=== PATIENT | female | born 1995 | race African-American/Black ===

== ENCOUNTER 2020-12-14 12:29 | Emergency (ER) | payer OTHER, SELFPAY ==
[2020-12-14 12:36] VITALS: BP 128/67; PULSE 74; RESP 18; TEMP 36.9; O2SAT 99
--- NOTE | 2020-12-14 13:08 | ED.URI ---
HPI - URI/Sore Throat General Chief Complaint: Upper Respiratory Infection Stated Complaint: migraine runny nose sore throat cough Time Seen by Provider: 12/14/20 12:51 Source: patient and RN notes reviewed Mode of arrival: ambulatory Limitations: no limitations History of Present Illness HPI Narrative: 25-year-old female presents concern for headache, body aches, sore throat, nasal congestion, runny nose. Reports symptoms started 4 days ago. Reports she started coughing yesterday. Reports she had an exposure to strep, does not know any exposure to Covid. She reports she has been taking Advil. She denies shortness of breath, loss of sense of taste or smell. She has not been vaccinated for Covid. MD elicited complaint: sore throat Related Data Allergies Allergy/AdvReac Type Severity Reaction Status Date / Time Penicillins Allergy Unknown Verified 12/14/20 12:45 Review of Systems Review of Systems: CONSTITUTIONAL: Denies malaise, chills, sweats, or fever. EYES: Denies visual changes, redness, or discharge. ENT: Reports rhinorrhea, congestion, sore throat. Denies sinus pain, otalgia CARDIOVASCULAR: Denies chest pain, palpitations, or edema. RESPIRATORY: Reports cough. Denies dyspnea. GASTROINTESTINAL: Denies abdominal pain, nausea, vomiting, diarrhea SKIN: Denies rash or itching. MUSCULOSKELETAL: Reports myalgia. NEUROLOGIC: Reports headache. All systems reviewed & are unremarkable except as noted in HPI and below PMFSH Comments At time of signature, agree with nursing past medical, surgical, social and family history. There is no relevant family history pertinent to the presenting complaint Exam Narrative: GENERAL: Well-appearing, well-nourished, and in no acute distress. HEAD: Normocephalic EYES: PERRLA, conjunctivae clear ENT: Nares clear. Mucous membranes moist. TM pearly sandoval with dull light reflex bilaterally; no tragal tenderness. Oropharynx not erythematous without lesions. Tonsils not enlarged and without exudate, no drooling, no hoarseness, no trismus, uvula midline. NECK: Supple. No lymphadenopathy CHEST: Clear to auscultation, breath sounds equal. No wheezing, rhonchi, rales, or stridor. No respiratory distress, speaks in full sentences. HEART: Regular rate and rhythm. No murmur heard. SKIN: Warm, dry, no rash. NEURO: Alert and oriented x3. PSYCH: Normal mood and affect Course Course Emergency Course: Patient is aware of diagnosis, understands and agrees to treatment plan. Anticipatory guidance given. Patient agrees to follow-up as directed and is aware of reasons to seek care at the emergency department. Portions of this record may have been created with voice recognition software Vital Signs Vital signs: Vital Signs Temperature 98.5 F 12/14/20 12:36 Pulse Rate 74 12/14/20 12:36 Respiratory Rate 18 12/14/20 12:36 Blood Pressure 128/67 12/14/20 12:36 Pulse Oximetry 99 12/14/20 12:36 Temperature 98.5 F 12/14/20 12:36 Pulse Rate 74 12/14/20 12:36 Respiratory Rate 18 12/14/20 12:36 Blood Pressure 128/67 12/14/20 12:36 Pulse Oximetry 99 12/14/20 12:36 Reviewed. MDM - URI/Sore Throat MDM Narrative Medical decision making narrative: Differential diagnosis considered: Garner virus, strep pharyngitis, allergic rhinitis, upper respiratory tract infection, sinusitis, rhinosinusitis, nasopharyngitis. viral pharyngitis, otitis media, otitis externa, pneumonia, bronchitis, viral cough syndrome, viral syndrome, and influenza. Exam findings show no acute concerns or changes; patient is non-toxic appearing and is in no distress. Patient is appropriate for outpatient treatment and follow-up. Lab Data Attestation: I reviewed the patient's lab results. Labs: Strep Screen Presumptive Negative *(Reference Range: Negative)* Critical Care Time Critical Care Time Critical Care Time: No Discharge Plan Discharge Clinical Impr
== END 2020-12-14 13:15 | disposition home or self-care (01) ==
PROVIDERS: Emergency Provider Nurse Practitioner
DX: U07.1 COVID-19 (principal)
CPT/HCPCS: 87081; 87426; 87880; 99213; C9803; G0463

== ENCOUNTER 2023-02-25 09:31 | Emergency (ER) | payer BC, SELFPAY ==
[2023-02-25 09:38] VITALS: BP 120/65; PULSE 72; RESP 16; TEMP 36.6; O2SAT 100
--- NOTE | 2023-02-25 10:13 | ED.GENADULT ---
HPI - General Adult General Chief complaint: Nausea/Vomiting/Diarrhea Stated complaint: Vomiting/Tightness of Chest Time Seen by Provider: 02/25/23 09:59 Source: patient and RN notes reviewed Mode of arrival: ambulatory Limitations: no limitations History of Present Illness HPI narrative: Patient presents today complaining of a 5 day history of nausea and vomiting, with left flank pain. States she vomits at least 2 times per day over the past 5 days. She currently rates her abdominal pain 12/04. Patient did a home test last night that was negative. Last bowel movement was this morning. She received a Zofran from a family member, which did help with her nausea symptoms this morning. She also took an Excedrin yesterday for a headache, which did help. Related Data Home Medications Medication Instructions Recorded Confirmed citalopram 20 mg tablet 20 mg PO DAILY 02/25/23 02/25/23 fluoxetine 20 mg capsule (Prozac) 20 mg PO DAILY 02/25/23 02/25/23 trazodone 50 mg tablet 50 mg PO QHS 02/25/23 02/25/23 Allergies Allergy/AdvReac Type Severity Reaction Status Date / Time amoxicillin Allergy Mild Rash Verified 02/25/23 10:11 Penicillins Allergy Mild Rash Verified 02/25/23 10:11 Review of Systems Review of Systems: CONSTITUTIONAL: Denies body aches, fever, chills.+ sweats EYES: Denies visual changes, redness, or discharge. ENT: Denies rhinorrhea, congestion, sore throat, or otalgia. CARDIOVASCULAR: Denies chest pain, palpitations, or edema. RESPIRATORY: Denies cough or dyspnea. GASTROINTESTINAL: + abdominal pain, left flank pain, nausea, vomiting GENITOURINARY: Denies dysuria or hematuria. SKIN: Denies rash, itching, or wounds. MUSCULOSKELETAL: Denies back pain, joint pain, or myalgia. NEUROLOGIC: Denies numbness, tingling, or weakness.+ headache PSYCH: Denies depression or anxiety. PMFSH Comments At time of signature, I have reviewed and agree with nursing past medical, surgical, social and family history unless otherwise noted. Please see nursing chart for further information. There is no relevant family history pertinent to the presenting complaint Exam Narrative: GENERAL: Well-appearing, well-nourished, and in no acute distress. HEAD: Normocephalic, atraumatic. EYES: EOMI. No redness or drainage. Conjunctivae normal. ENT: Mucous membranes pink and moist. NECK: Normal AROM. Supple. No lymphadenopathy. CHEST: No respiratory distress. Clear to auscultation. HEART: Regular rate and rhythm. No murmur appreciated. Normal peripheral pulses. ABDOMEN: Soft, nondistended, normal active bowel sounds.+ tenderness over the left abdomen and suprapubic area with guarding. -CVAT EXTREMITIES: Normal range of motion. No edema. SKIN: Warm, dry, no rash. Capillary refill normal. Normal skin turgor. NEURO: No focal deficits. Alert and oriented x3. Gait steady. PSYCH: Normal affect. No signs of depression or anxiety. Course Course Level of Care: Express Care Visit Vital Signs Vital signs: Vital Signs Temperature 97.9 F 02/25/23 09:38 Pulse Rate 72 02/25/23 09:38 Respiratory Rate 16 02/25/23 09:38 Blood Pressure 120/65 02/25/23 09:38 Pulse Oximetry 100 02/25/23 09:38 Oxygen Delivery Room Air 02/25/23 09:38 Temperature 97.9 F 02/25/23 09:38 Pulse Rate 72 02/25/23 09:38 Respiratory Rate 16 02/25/23 09:38 Blood Pressure 120/65 02/25/23 09:38 Pulse Oximetry 100 02/25/23 09:38 Oxygen Delivery Room Air 02/25/23 09:38 Reviewed Transfer Transfered to: [facility] Transportation: Other (private vehicle) Transfer rationale: abdominal pain, flank pain Accepting physician: Dorie Medical Decision Making [facility] Narrative Medical decision making narrative: Due to patient's exam and tenderness to her abdomen, I recommend that she be transferred to the hospital for further evaluation. Patient wishes to go to [facility]. Differential Diag
== END 2023-02-25 10:25 | disposition short-term general hospital (02) ==
PROVIDERS: Emergency Provider Nurse Practitioner; PCP Internal Medicine
DX: R10.9 Unspecified abdominal pain (principal); R11.2 Nausea with vomiting, unspecified; F39 Unspecified mood [affective] disorder
CPT/HCPCS: 99212; G0463

== ENCOUNTER 2023-07-16 13:01 | Emergency (ER) | payer BC, SELFPAY ==
[2023-07-16 13:08] VITALS: BP 125/74; PULSE 89; RESP 16; TEMP 36.8; O2SAT 100
--- NOTE | 2023-07-16 13:26 | ED.GENADULT ---
HPI - General Adult General Chief complaint: Dental/Oral Stated complaint: Toothache Source: patient, RN notes reviewed and old records reviewed Mode of arrival: ambulatory Limitations: no limitations History of Present Illness HPI narrative: 27-year-old female presents to [facility] with complaints of left upper dental pain that started in March. Patient states had a dentist appointment but they canceled on her twice. Patient states was on cephalexin in April for infected tooth. Related Data Home Medications Medication Instructions Recorded Confirmed citalopram 20 mg tablet 20 mg PO DAILY 02/25/23 07/16/23 fluoxetine 20 mg capsule (Prozac) 20 mg PO DAILY 02/25/23 07/16/23 trazodone 50 mg tablet 50 mg PO QHS 02/25/23 07/16/23 Allergies Allergy/AdvReac Type Severity Reaction Status Date / Time amoxicillin Allergy Mild Rash Verified 07/16/23 13:22 Penicillins Allergy Mild Rash Verified 07/16/23 13:22 Review of Systems Constitutional: Constitutional: Reports no additional constitutional complaints, Denies body ache(s), Denies chills, Denies fatigue, Denies fever(s) and Denies headache(s) Eyes: Eyes: Reports no additional eye complaints and Denies blurry vision ENT: Reports system reviewed and no additional complaints, except as documented, Reports dental pain, Denies vertigo, Denies dizziness, Denies ear discharge, Denies otalgia, Denies facial pain, Denies headache(s), Denies nasal congestion, Denies nasal discharge, Denies sinus pain, Denies sinus pressure and Denies sore throat Cardiovascular: Cardiovascular: Reports no additional cardiovascular complaints, Denies chest pain, Denies chest pain at rest, Denies rapid heart rate and Denies dyspnea Respiratory: Respiratory: Reports no additional respiratory complaints, Denies chest congestion, Denies cough, Denies pain on inspiration, Denies pain with cough and Denies dyspnea Gastrointestinal: Gastrointestinal: Denies abdominal pain, Denies diarrhea, Denies nausea and Denies vomiting Integumentary/Breasts: Skin/Breast: Denies rash Neurologic: Reports system reviewed and no additional complaints, except as documented, Denies vertigo, Denies dizziness and Denies headache(s) Endocrine: Endocrine: Denies fatigue PMFSH Comments At the time of my signature, I reviewed and agree with the nursing past medical, surgical, social, and family history. There is no relevant family history pertinent to the patient complaint. Exam Const: General: cooperative, healthy appearing, no acute distress and well nourished Nutritional Appearance: well nourished Orientation/consciousness: patient oriented x3 Limitations: no limitations HENMT: Head: normal to inspection and normocephalic Ears: external ears normal Face/Nose/Sinus: normal facial exam Face and sinus: normal facial exam Mouth: Yes Normal oral and palatal mucosa present, Yes oropharynx normal and Yes moist mucous membranes Teeth and gingiva: gingiva abnormal edematous and diffusely erythematous and poor dentition Teeth image: 1. Throat: tonsils normal, uvula midline and no uvular edema Eyes: General: appearance normal, both eyes and all related structures Sclera: sclerae normal Pupils: Equal, round and reactive pupils present Resp: Effort & Inspection: normal respiratory effort, able to speak in complete sentences, no audible wheezes, no cough, no respiratory distress and no retractions Auscultation: clear to auscultation bilaterally, no crackles, no rales, no rhonchi and no wheezes Cardio: Rate: regular rate Rhythm: regular rhythm Skin: General skin exam: normal color and no rashes or lesions noted Neuro: General: patient oriented x3 Cranial nerves: Yes Equal, round and reactive pupils present Psych: Appearance: grossly normal Mental Status: mental status grossly normal Speech and movement: Normal speech and movement present Affect: normal affect Course Course Emergency Course: Patient is aware
== END 2023-07-16 13:35 | disposition home or self-care (01) ==
PROVIDERS: Emergency Provider Registered Nurse; PCP Internal Medicine
DX: K04.7 Periapical abscess without sinus (principal)
CPT/HCPCS: 99213; G0463

== ENCOUNTER 2024-01-04 13:04 | Emergency (ER) | payer SELFPAY ==
--- NOTE | ~2024-01-04 | XR_ITS ---
EXAMINATION: XR ankle LT min 3V DATE: 01/04/2024 13:38 INDICATION: Left ankle injury. TECHNIQUE: 4 views of left ankle were obtained. COMPARISON: None. FINDINGS: Bone alignment is normal. No fracture. Joint spaces are normal. There is an enthesophyte of posterior aspect of calcaneal tuberosity. IMPRESSION: 1. No fracture. Reviewed, dictated and finalized at location A. IMPRESSION: 1. No fracture.
--- NOTE | ~2024-01-04 | XR_ITS ---
EXAMINATION: XR tibia fibula LT 2V DATE: 01/04/2024 13:38 INDICATION: Left lower leg injury. TECHNIQUE: 2 views of left tibia and fibula on 4 radiographs were obtained. COMPARISON: None. FINDINGS: Bone alignment is normal. No fracture. Joint spaces are normal. No knee joint effusion. IMPRESSION: 1. No fracture. Reviewed, dictated and finalized at location A. IMPRESSION: 1. No fracture.
[2024-01-04 13:10] VITALS: BP 133/48; PULSE 81; RESP 20; TEMP 37; O2SAT 100
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
== END 2024-01-04 14:00 | disposition home or self-care (01) ==
PROVIDERS: Emergency Provider Nurse Practitioner Family; PCP Internal Medicine
DX: S80.12XA Contusion of left lower leg, initial encounter (principal); V86.09XA Driver of other special all-terrain or other off-road motor vehicle injured in traffic accident, initial encounter; F41.9 Anxiety disorder, unspecified; F32.A Depression, unspecified
CPT/HCPCS: 73590; 73610; 99214; G0463

== ENCOUNTER 2024-07-05 12:45 | Emergency (ER) | payer SELFPAY ==
[2024-07-05 12:53] VITALS: BP 132/73; PULSE 97; RESP 20; TEMP 36.6; O2SAT 99
--- NOTE | 2024-07-05 13:16 | ED.GENADULT ---
HPI - General Adult General Chief complaint: Nausea/Vomiting/Diarrhea Stated complaint: Vomiting Time Seen by Provider: 07/05/24 13:12 Source: patient, RN notes reviewed and old records reviewed Mode of arrival: ambulatory Limitations: no limitations History of Present Illness HPI narrative: 28-year-old female who presents to [facility] with 5 day history of nausea and vomiting and also some diarrhea. She states last episode vomiting and diarrhea was 11 30 this morning. Patient states she tried to eat some chicken broth and crackers and had emesis and diarrhea. Patient reports that she had fever up to 102.3 F last night and also has bad headache today. Patient reports that she has been exposed to influenza but was about 2 to 3 weeks ago. Patient reports pain to abdomen area right lateral abdomen radiating to lower abdomen region states has had UTI's before but is unable to give urine specimen. Patient reports that she has taken Ibuprofenand also Pepto Bismol for her symptoms. MD complaint: nausea and vomiting and diarrhea Onset (ago): day(s) (5) Location: abdomen (right lateral mid abdomen radiating to lower abdomen) Severity: moderate Quality: aching Pain Consistency: intermittent Treatments prior to arrival: NSAID and other (Pepto Bismol) Related Data Home Medications ?Medication ?Instructions ?Recorded ?Confirmed ?Last Taken ?Type citalopram 20 mg tablet 20 mg PO DAILY 02/25/23 01/04/24 Unknown History fluoxetine 20 mg capsule (Prozac) 20 mg PO DAILY 02/25/23 01/04/24 Unknown History trazodone 50 mg tablet 50 mg PO QHS 02/25/23 01/04/24 Unknown History Allergies Allergy/AdvReac Type Severity Reaction Status Date / Time amoxicillin Allergy Mild Rash Verified 01/04/24 13:24 Penicillins Allergy Mild Rash Verified 01/04/24 13:24 Review of Systems Review of Systems: CONSTITUTIONAL: Reports malaise, chills, sweats, or fever. EYES: Denies visual changes, redness, or discharge. ENT: Reports no rhinorrhea, congestion, sinus pain, otalgia and sore throat. CARDIOVASCUL AR: Denies chest pain, palpitations, or edema. RESPIRATORY: Reports cough.? Denies dyspnea. GASTROINTESTINAL:Reports right lateral mid abdominal pain that radiates to mid lower abdomen,positive for nausea, vomiting, diarrhea SKIN: Denies rash or itching. MUSCULOSKELETAL: Denies myalgia. NEUROLOGIC:reports headache. All systems reviewed & are unremarkable except as noted in HPI and below PMFSH Past Medical History Medical History (Updated 07/07/24 @ 09:01 by Nidia Gonzalez NP) UTI (urinary tract infection) Insomnia Anxiety and depression Social History Social History Smoking status: Unknown if ever smoked Alcohol intake: unknown Substance use: unknown Living arrangements: with family Gender identity (if verbalized by the patient): Female Comments At time of signature, agree with nursing past medical, surgical, social and family history. There is no relevant family history pertinent to the presenting complaint Exam Narrative: GENERAL: Well-appearing, well-nourished, and in no acute distress. HEAD: Normocephalic EYES: PERRLA, conjunctivae clear ENT: Nares clear, turbinates edematous and erythematous, clear discharge. Mucous membranes moist. TM pearly sandoval with dull light reflex bilaterally; no tragal tenderness. Oropharynx erythematous without lesions. Tonsils not enlarged and without exudate, no drooling, no hoarseness, no trismus, uvula midline. NECK: Supple. No lymphadenopathy CHEST: Clear to auscultation, breath sounds equal. No wheezing, rhonchi, rales, or stridor. No respiratory distress, speaks in full sentences.no cough, SAO2 99% on room air ABDOMINAL: soft tender to right lateral mid abdomen with some radiation to lower mid abdomen. No McBurney point tenderness. bowel sounds present to all quadrants HEART: Regular rate and rhythm. No murmur heard. SKIN: Warm, dry, no rash. NEURO: Alert and oriented x3. PSYCH: Normal mood and affect Course Course Emergency Course: Patient is aware of diagnosis, understands and agrees to treatment plan.? Anticipatory guidance given.? Patient agrees to follow-up as directed and is aware of reasons to seek care at the emergency department. Portions of this record may have been created with voice recognition software Level of Care: Express Care Visit Vital Signs Vital signs: Vital Signs Temperature 36.6 C 07/05/24 12:53 Pulse Rate 97 07/05/24 12:53 Respiratory Rate 20 07/05/24 12:53 Blood Pressure 132/73 07/05/24 12:53 Pulse Oximetry 99 07/05/24 12:53 Oxygen Delivery Room Air 07/05/24 12:53 Temperature 36.6 C 07/05/24 12:53 Pulse Rate 97 07/05/24 12:53 Respiratory Rate 20 07/05/24 12:53 Blood Pressure 132/73 07/05/24 12:53 Pulse Oximetry 99 07/05/24 12:53 Oxygen Delivery Room Air 07/05/24 12:53 Reviewed Transfer Transfered to: [facility] ([place]) Transportation: Other (private car with family) Transfer rationale: Nausea and vomiting and diarrhea for 5 days,abdominal pain and was febrile last night, dehydrated Accepting physician: Rainer Transfer comments: To [facility] per private car with family Medical Decision Making MDM Narrative Medical decision making narrative: Patient received Zofran while in clinic with some decrease in nausea and was able to drink 4 oz of water was unable to give urine sample. [id number] Call placed to [facility] ED and spoke with Shanta charge nurse with testing results.PMH, present complaints and vital signs reviewed with Dr Spear accepting patient for transfer. Differential Diagnosis Differential Diagnosis: abdominal pain, pyelonephritis, UTI, ovarian torsion, small bowel obstruction, dehydration nausea vomiting and diarrhea. Medical Records Medical records reviewed: Yes I reviewed the external patient's medical records. Vital Signs Vital Signs: Vital Signs Temperature 36.6 C 07/05/24 12:53 Pulse Rate 97 07/05/24 12:53 Respiratory Rate 20 07/05/24 12:53 Blood Pressure 132/73 07/05/24 12:53 Pulse Oximetry 99 07/05/24 12:53 Oxygen Delivery Room Air 07/05/24 12:53 Temperature 36.6 C 07/05/24 12:53 Pulse Rate 97 07/05/24 12:53 Respiratory Rate 20 07/05/24 12:53 Blood Pressure 132/73 07/05/24 12:53 Pulse Oximetry 99 07/05/24 12:53 Oxygen Delivery Room Air 07/05/24 12:53 Lab Data Lab results reviewed: Yes I reviewed the patient's lab results. Lab results narrative: Influenza A negative, Influenza B negative, COVID antigen negative Labs: Lab Results 07/05/24 Range/Units 13:41 POC Influenza A Ag Negative (Negative) POC Influenza B Ag Negative (Negative) POC SARS CoV-2 Ag Negative (Negative) reviewed Critical Care Time Critical Care Time Critical Care Time: No Discharge Plan Discharge Clinical Impression: Nausea vomiting and diarrhea Abdominal pain Qualifiers: Abdominal location: unspecified location Qualified Code(s): R10.9 - Unspecified abdominal pain Patient Disposition: Acute Care Hospital Condition: Stable Patient Language: Spanish Prescriptions: No Action trazodone 50 mg tablet 50 mg PO QHS citalopram 20 mg tablet 20 mg PO DAILY fluoxetine [Prozac] 20 mg Capsule 20 mg PO DAILY ibuprofen 800 mg tablet 800 mg PO TID PRN (Reason: pain) Qty: 15 0RF Follow-up/Referrals: PHYSICIAN,FREIGHT TEAM ASSOCIATE [Primary Care Provider] - Time of Disposition: 14:11 Quality Adela Coma Scale Eyes: Open Verbal: Oriented and Alert Motor: Follows Commands [place] Coma Total Score: 15
[2024-07-05 13:44] LABS: EDCOVIDSCREEN Negative (Negative); EDINFLUASCREEN Negative (Negative); EDINFLUBSCREEN Negative (Negative)
[2024-07-05] MEDS: ONDANSETRON HCL ODT 4 MG TABLET SUBLINGUAL (13:49)
--- OUTSIDE RECORDS SUMMARY | 2024-07-05 13:58 | XMS_ITS | Clinical Summary ---
Author Organization [facility] Address [address] [place] [address] Care Team Providers Care Shore Hand Dredge Or Barge Name Role Phone Abdelrahman Pickard MD Primary Care Provider [phone] Allergies Active Allergy Reactions Criticality Noted Date Comments Amoxicillin Rash Medium 02/25/2023 Peanut Penicillins Rash Medium 02/25/2023 Medications ondansetron (ZOFRAN) 4 mg tablet Take 1 tablet (4 mg total) by mouth every 6 (six) hours 12 tablet 09/30/2021 Active Social History Tobacco Use Types Packs/Day Years Used Date Smoking Tobacco: Former Cigarettes Smokeless Tobacco: Never Tobacco Cessation:Counseling Given: Not Answered Alcohol Use Standard Drinks/Week Comments Not Currently 0 (1 standard drink = 0.6 oz pur e alcohol) Personal Safety Answer Date Recorded Have you ever been in or are you currently in a harmful physical or emotional relationship or is someone making you feel afraid or unsafe? 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 Gender Identity Not on file Sexual Orientation Not on file Obstetrics History Last Filed Vital Signs Vital Sign Reading Time Taken Comments Blood Pressure 130/82 02/25/2023 11:35 AM CDT Pulse 81 02/25/2023 11:35 AM CDT Temperature 36.5 C (97.7 F) 02/25/2023 11:35 AM CDT Respiratory Rate 18 02/25/2023 11:35 AM CDT Oxygen Saturation 100% 02/25/2023 11:35 AM CDT Inhaled Oxygen Concentration - - Weight 92.5 kg (204 lb) 02/25/2023 11:35 AM CDT Height 157.5 cm (5' 2.01 ) 09/30/2021 9:39 AM CD T Body Mass Index 37.3 09/30/2021 9:39 AM CDT Plan of Treatment Health Maintenance Due Date Last Done Comments Cervical Cancer Screening 1994 Depression Screening 1994 Hepatitis C Screening 1994 Varicella Vaccines (1 of 2 - 13+ 2-dose series) 08/10/2007 Regular Well Visit/Exam 18-64 2012 DTaP/Tdap/Td Vaccine (7 - Td or Tdap) 07/17/2016 07/17/2006, 07/31/1999, 08/10/1995, Additional history exists Influenza Vaccine (#1) 2023 , 02/16/2017, 02/06/2010, Additional history exists Hepatitis B Screening Completed 02/17/1995 , 1994, 1994 HPV Vaccines Completed 01/04/2009, 05/29, 11/01/2007 Pneumococcal vaccine <65 Aged Out No longer eligible based on patient's age to complete this topic Insurance ANTHEM ACCESS CHOICE Care Teams Shore Hand Dredge Or Barge Relationship Specialty Start Date End Date Abdelrahman Pickard MD [address] [place] [id number] PCP - General 04/15/20
--- OUTSIDE RECORDS SUMMARY | 2024-07-05 13:58 | XMS_ITS | Clinical Summary ---
Author Organization [facility] Address [address] [place] [address] Phone Care Team Providers Care Lumber Racker Name Role Phone Abdelrahman Pickard MD Primary Care Provider [phone] Allergies Active Allergy Reactions Criticality Noted Date Comments Amoxicillin Swelling High 01/17/2023 Penicillins Swelling 01/17/2023 Medications ondansetron (ZOFRAN) 4 MG Tablet Take 1-2 Tablets by mouth every 8 hours as needed for Nausea - 1st line. 10 Tablet 03/06/2023 Active Social History Tobacco Use Types Packs/Day Years Used Date Smoking Tobacco: Former Cigarettes Tobacco Cessation:Counseling Given: Not Answered Alcohol Use Standard Drinks/Week Comments Yes 0 (1 standard drink = 0.6 oz pur e alcohol) socially Comments No Sex and Gender Information Value Date Recorded Sex Assigned at Not on file Legal Sex Female 12:32 AM CDT Gender Identity Not on file Sexual Orientation Not on file Last Filed Vital Signs Vital Sign Reading Time Taken Comments Blood Pressure 107/59 03/06/2023 2:42 PM RETOUCHING OPERATOR Pulse 57 03/06/2023 2:42 PM RETOUCHING OPERATOR Temperature 36.8 C (98.2 F) 03/06/2023 11:17 AM RETOUCHING OPERATOR Respiratory Rate 16 03/06/2023 2:42 PM RETOUCHING OPERATOR Oxygen Saturation 99% 03/06/2023 2:42 PM RETOUCHING OPERATOR Inhaled Oxygen Concentration - - Weight 112 kg (246 lb 14.6 oz) 03/06/2023 11:17 AM RETOUCHING OPERATOR Height 160 cm (5' 3 ) 03/06/2023 11:17 AM RETOUCHING OPERATOR Body Mass Index 43.74 03/06/2023 11:17 AM RETOUCHING OPERATOR Plan of Treatment Health Maintenance Due Date Last Done Comments Hepatitis C Virus (HCV) Screening 1994 Pap Smear 08/10/2015 Influenza Immunization (#1) 2023 02/0 10/2022, 02/16/2017, 08/16/2009 SARS-COV-2 Immunization ( - 2023- season) 2023 Respiratory Syncytial Virus (RSV) Immunization (Adult) (1 - 1-dose 75+ series) 2069 Hepatitis B Immunization Completed 995, 1994, 1994 Meningococcal Immunization (ACWY) Completed 10/02/2010, 06/22/2008 DTaP/Tdap/Td Immunization Discontinued 2022, 07/17/2006, 07/31/1999, Additional history exists TdaP Immunization Completed 02/27/2023, , 02/17/1995, Additional history exists Pneumococcal Immunization Combined Aged Out No longer eligible based on patient's age to complete this topic Rotavirus Immunization Aged Out No lo nger eligible based on patient's age to complete this topic Insurance [facility] Care Teams Lumber Racker Relationship Specialty Start Date End Date Abdelrahman Pickard MD [address] [place] [address] PCP - General Internal Medicine 07/17/15
--- OUTSIDE RECORDS SUMMARY | 2024-07-05 13:58 | XMS_ITS | Clinical Summary ---
Author Organization [facility] Address [address] [place] [address] Care Team Providers Care Plate Take Out Worker Name Role Phone Tobi Hay MD Primary Care Provider [phone] Source Comments [facility],non-[facility] Affiliates and Associated Physician Practices is amultiple site organization consisting of ambulatory clinics and hospital sitesin [place], [place], [place] and [place]. This disclosure is being madepursuant to the Care Everywhere program and may not contain all information available regarding this patient. Last updated 18.[facility] Allergies Active Allergy Reactions Criticality Noted Date Comments Peanut-Derived 09/10/2012 Medications * Be aware that medications may not be up to date on this document. Alwaysverify current medications with the patient. Medication Sig Dispensed Refills Start Date End Date Status Norethin-Eth Estrad-Fe Biphas (LO LOESTRIN FE PO) Take by mouth once daily. Active NAPROXEN PO Take by mouth as needed. Active omeprazole EC (PRILOSEC OTC) 20 MG tablet Take 1 Tab by mouth 2 times daily before meals. 60 Tab 2 09/10/2012 Active Social History Tobacco Use Types Packs/Day Years Used Date Smoking Tobacco: Never Alcohol Use Standard Drinks/Week Comments Not Asked 0 (1 standard drink = 0.6 oz pur e alcohol) Sex and Gender Information Value Date Recorded Sex Assigned at Not on file Gender Identity Not on file Sexual Orientation Not on file Last Filed Vital Signs Vital Sign Reading Time Taken Comments Blood Pressure 136/70 09/10/2012 10:59 AM CDT Pulse - - Temperature - - Respiratory Rate - - Oxygen Saturation - - Inhaled Oxygen Concentration - - Weight 128.7 kg (283 lb 11.2 oz) 2012 10:59 AM CDT Height 161 cm (5' 3.39 ) 09/10/2012 10: 59 AM CDT Body Mass Index 49.64 09/10/2012 10:59 AM CDT Plan of Treatment Health Maintenance Due Date Last Done Comments PAP SMEAR 1994 HIV SCREENING 2009 HEPATITIS C SCREENING 08/04/2012 DTAP/TDAP/TD VACCINES (1 - Tdap) 2013 HEPATITIS B VACCINE (1 of 3 - 19+ 3-dose series) 2013 COVID-19 VACCINE (1 - 2023-2 5 season) 2023 INFLUENZA VACCINE (#1) 2023 DEPRESSION SCREENING 04/27/2024 ZOSTER VACCINE (1 of 2) 2044 HIB VACCINE Aged Out No longer eligi ble based on patient's age to complete this topic HPV VACCINE Aged Out No longer eligi ble based on patient's age to complete this topic MENINGOCOCCAL (Group B) VACCINE Aged Out No longer eligible based on patient's age to complete this topic MENINGOCOCCAL VACCINE Aged Out No samuel kelsey eligible based on patient's age to complete this topic PNEUMOCOCCAL VACCINE Aged Out No long er eligible based on patient's age to complete this topic Care Teams Plate Take Out Worker Relationship Specialty Start Date End Date Tobi Hay MD [address] [place] [address] PCP - General 01/02/12
--- OUTSIDE RECORDS SUMMARY | 2024-07-05 13:58 | XMS_ITS | Referral Summary ---
Author Organization [facility] Address [address] [place] [address] Care Team Providers Care Software Business Analyst Name Role Phone Tobi Hay MD Primary Care Provider [phone] Source Comments [facility] Affiliates and Associated Physician Practices is amultiple site organization consisting of ambulatory clinics and hospital sitesin [place], [place], [place] and [place]. This disclosure is being madepursuant to the Care Everywhere program and may not contain all information available regarding this patient. Last updated 18.[facility] Allergies Active Allergy Reactions Criticality Noted Date [...] 09/10/2012 10:59 AM CDT Plan of Treatment Not on file Care Teams Software Business Analyst Relationship Specialty Start Date End Date Tobi Hay MD [address] [place] [address] PCP - General 01/02/12
--- OUTSIDE RECORDS SUMMARY | 2024-07-05 13:58 | XMS_ITS | Referral Summary ---
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
--- OUTSIDE RECORDS SUMMARY | 2024-07-05 13:58 | XMS_ITS | Patient Health Summary ---
Author Organization [facility] Address [address] [place] [address] Care Team Providers Care Log Snaker Name Role Phone Tobi Hay MD Primary Care Provider [phone] Note from [facility],non-owned Affiliates and Associated Physician Practices is amultiple site organization consisting of ambulatory clinics and hospital sitesin [place], [place], [place] and [place]. This disclosure is being madepursuant to the Care Everywhere program and may not contain all information available regarding this patient. Last updated 18.[facility] Allergies * Peanut-Derived Medications * Be aware that medications may not be up to date on this document. Alwaysverify current medications with the patient. * Norethin-Eth Estrad-Fe Biphas (LO LOESTRIN FE PO) Take by mouth once daily. * NAPROXEN PO Take by mouth as needed. * omeprazole EC (PRILOSEC OTC) 20 MG tablet(Started 09/10/2012) Take 1 Tab by mouth 2 times daily before meals. 2 refills left Social History Tobacco Use Types Packs/Day Years [...] Mass Index 49.64 09/10/2012 10:59 AM CDT Procedures * LIPASE BLOOD(Performed 02/12/2012) Performed for Abdominal pain, unspecified site * C-REACTIVE PROTEIN(Performed 02/12/2012) Performed for Abdominal pain, unspecified site * COMPREHENSIVE METABOLIC PANEL(Performed 02/12/2012) Performed for Abdominal pain, unspecified site * CBC W AUTO DIFFERENTIAL(Performed 02/12/2012) Performed for Abdominal pain, unspecified site * AMYLASE BLOOD(Performed 02/12/2012) Performed for Abdominal pain, unspecified site Results * (ABNORMAL) C-REACTIVE PROTEIN (02/12/2012 2:45 PM CDT) [facility] C-Reactive Protein 2.4(H) <=0.5 mg/dL 02/12/2012 3:39 PM CDT [facility] Blood specimen (specimen) BLOOD SPECIMEN / Unknown 02/12/2012 2:45 PM CDT 02/12/2012 2:49 PM CDT Alexandre Lott MD LAB - CHEMISTRY HOMERO FOSTER [facility] Organization Address City/State/[facility] Co de Phone Number [facility] [address] [place] [address] * (ABNORMAL) CBC W AUTO DIFFERENTIAL (02/12/2012 2:45 PM CDT) [facility] WBC 10.9 4.5 - 11.0 x10^9/L 02/12/2012 3:05 PM CDT [facility] RBC 4.73 4.10 - 5.10 x10^12/L 02/12/2012 3:05 PM CDT [facility] Hemoglobin 11.4(L) 12.0 - 16.0 g/dL 02/12/2012 3:05 PM CDT [facility] Hematocrit 35.8(L) 36.0 - 47.0 % 02/12/2012 3:05 PM CDT [facility] MCV 75.7(L) 78.0 - 98.0 fl 02/12/2012 3:05 PM CDT [facility] MCH 24.1(L) 25.0 - 35.0 pg 02/12/2012 3:05 PM CDT [facility] MCHC 31.8 31.0 - 37.0 gm/dL 02/12/2012 3:05 PM CDT [facility] RDW-CV 14.6(H) 11.5 - 14.0 % 02/12/2012 3:05 PM CDT [facility] MPV 10.2(H) 6.0 - 9.5 fl 02/12/2012 3:05 PM CDT [facility] Neutrophils % 60 31 - 78 % 02/12/2012 3:05 PM CDT [facility] Lymphocytes % 33 13 - 54 % 02/12/2012 3:05 PM CDT [facility] Monocytes % 6 4 - 13 % 02/12/2012 3:05 PM CDT [facility] Eosinophils % 1 0 - 8 % 02/12/2012 3:05 PM CDT [facility] Basophils % 0 0 - 2 % 02/12/2012 3:05 PM CDT [facility] Platelet Count 278 100 - 400 x10^9/L 02/12/2012 3:05 PM CDT [facility] Blood specimen (specimen) BLOOD SPECIMEN / Unknown 02/12/2012 2:45 PM CDT 02/12/2012 2:49 PM CDT Alexandre Lott MD LAB - HEMATOLOGY ORD ERABLES Performing Organization Address City/State/[facility] de Phone Number [facility] [place] [address] * (ABNORMAL) COMPREHENSIVE METABOLIC PANEL (02/12/2012 2:45 PM CDT) [facility] Glucose 86 70 - 105 mg/dL 02/12/2012 3:40 PM CDT [facility] Sodium 139 136 - 145 mmol/L 02/12/2012 3:40 PM CDT [facility] Potassium 4.0 3.5 - 5.1 mmol/L 02/12/2012 3:40 PM CDT [facility] Chloride 105 98 - 107 mmol/L 02/12/2012 3:40 PM CDT [facility] CO2 26 20 - 28 mmol/L 02/12/2012 3:40 PM CDT [facility] Calcium 8.78(L) 9.08 - 10.48 mg/dL 02/12/2012 3:40 PM T [facility] Anion Gap 8 5 - 20 mmol/L 02/12/2012 3:40 PM T [facility] BUN 8.4 5.3 - 18.7 mg/dL 02/12/2012 3:40 PM T [facility] Creatinine 0.67 0.61 - 1.07 mg/dL 02/12/2012 3:40 PM T [facility] eGFR by MDRD >60 ml/min/1. 73m2 02/12/2012 3:40 PM T [facility] Comment:eGFR calculations ar e not performed for children under 18 years old. eGFR by MDRD >60 ml/min/1. 73m2 02/12/2012 3:40 PM T [facility] Comment:eGFR calculations ar e not performed for children under 18 years old. Alkaline Phosphatase 67(L) 100 - 390 U/L 02/12/2012 3:40 PM T [facility] ALT 7(L) 8 - 65 U/L 02/12/2012 3:40 PM T [facility] AST 11 3 - 35 U/L 02/12/2012 3:40 PM T [facility] Protein Total 7.4 6.3 - 8.2 gm/dL 02/12/2012 3:40 PM T [facility] Albumin 3.7 3.3 - 4.9 gm/dL 02/12/2012 3:40 PM T [facility] Bilirubin Total 0.1(L) 0.3 - 1.2 mg/dL 02/12/2012 3:40 PM T [facility] Blood specimen (specimen) BLOOD SPECIMEN / Unknown 02/12/2012 2:45 PM CDT 02/12/2012 2:49 PM CDT Alexandre Lott MD LAB - CHEMISTRY HOMERO FOSTER [facility] Organization Address City/State/ZIP Co de Phone Number [facility] [address] [place] [address] * LIPASE BLOOD (02/12/2012 2:45 PM CDT) Lipase 26 10 - 220 U/L 02/12/2012 3:39 PM CDT [facility] Blood specimen (specimen) BLOOD SPECIMEN / Unknown 02/12/2012 2:45 PM CDT 02/12/2012 2:49 PM CDT Alexandre Lott MD LAB - CHEMISTRY HOMERO FOSTER Performing Organization Address City/[facility]/ZIP Co de Phone Number [facility] [address] [place] [address] * AMYLASE BLOOD (02/12/2012 2:45 PM CDT) Amylase 55 5 - 65 U/L 02/12/2012 3:39 PM CDT [facility] Blood specimen (specimen) BLOOD SPECIMEN / Unknown 02/12/2012 2:45 PM CDT 02/12/2012 2:49 PM CDT Alexandre Lott MD LAB - CHEMISTRY HOMERO FOSTER Performing Organization Address [facility] Co de Phone Number [facility] [address] [place] [address] Care Teams Log Snaker Relationship Specialty Start Date End Date Tobi Hay MD [address] [place] [address] PCP - General 01/02/12
== END 2024-07-05 14:13 | disposition short-term general hospital (02) ==
LOC: EXPBETH 12:48
PROVIDERS: Emergency Provider Registered Nurse
DX: R11.2 Nausea with vomiting, unspecified (principal); R19.7 Diarrhea, unspecified; R10.9 Unspecified abdominal pain; Z20.822 Contact with and (suspected) exposure to COVID-19; F41.9 Anxiety disorder, unspecified; F32.A Depression, unspecified
CPT/HCPCS: 87426; 87804; 99213; A9270; G0463

== ENCOUNTER 2024-09-27 08:38 | Emergency (ER) | payer SELFPAY ==
--- OUTSIDE RECORDS SUMMARY | 2024-09-27 08:40 | XMS_ITS | Clinical Summary ---
Author Organization [facility] Address [address] [place] [address] Phone Care Team Providers Care Valve Steamer Name Role Phone Provider, None Primary Care Provider Unavailabl e Allergies Active Allergy Reactions Criticality Noted Date Comments Amoxicillin Swelling High 01/17/2023 Penicillins Swelling 01/17/2023 Medications ondansetron (ZOFRAN) 4 MG Tablet Take 1-2 Tablets by mouth every 8 hours as needed for Nausea - 1st line. 10 Tablet 03/06/2023 Active sulfamethoxazol e-trimethoprim DS (Bactrim DS) 800-160 MG Tablet Take 1 Tablet by mouth 2 times daily for 10 days. 20 Tablet 09/05/2024 09/16/19 25 cephALEXin (KEFLEX) 500 MG Capsule Take 1 Capsule by mouth 3 times daily for 10 days. 30 Capsule 09/05/2024 09/16/19 25 Encounters Date Type Department Care Team Description 09/05/2024 1:45 PM CDT - 09/05/2024 2:19 PM CDT Emergency [facility] Emergency [address] [place] [address] Mamta Muhammad APRN, SENIOR RESEARCH ASSOCIATE Vaginal lesion Discharge Disposition: Discharged to home or Selfcare 09/05/2024 Travel from Last 3 Months Social History Tobacco Use Types Packs/Day Years [...] Sign Reading Time Taken Comments Blood Pressure 118/75 09/05/2024 2:12 PM CDT Pulse 72 09/05/2024 2:12 PM CDT Temperature 36 C (96.8 F) 09/05/2024 1:11 PM CDT Respiratory Rate 16 09/05/2024 2:12 PM CDT Oxygen Saturation 100% 09/05/2024 2:12 PM CDT Inhaled Oxygen Concentration - - Weight 99.8 kg (220 lb) 09/05/2024 1:11 PM CDT Height 160 cm (5' 3) 09/05/2024 1:11 PM CDT Body Mass Index 38.97 09/05/2024 1:11 PM CDT Plan of Treatment Health Maintenance Due Date Last Done Comments Hepatitis C Virus (HCV) Screening 1994 Pap Smear 08/10/2015 SARS-COV-2 Immunization ( season) 2023 Cervical Cancer Screening (CCS) 2024 HPV/Cotest 2024 Influenza Immunization (Season Ended) 2024 06/03/2022, 02/16/2017, 02/06/2010, Additional history exists Respiratory Syncytial Virus (RSV) Immunization (Adult) (1 - 1-dose 75+ series) 2069 Hepatitis B Immunization Completed 995, 1994, 1994 Human Papillomavirus (HPV) Immunization Completed 01/04/2009, 06/22/2008, 11/01/2007 Meningococcal Immunization (ACWY) Completed 10/02/2010, 06/22/2008 DTaP/Tdap/Td Immunization Discontinued 2022, 07/17/2006, 07/31/1999, Additional history exists TdaP Immunization Completed 02/27/2023, , 02/17/1995, Additional history exists Pneumococcal Immunization Combined Aged Out No longer eligible based on patient's age to complete this topic Rotavirus Immunization Aged Out No lo nger eligible based on patient's age to complete this topic Procedures Procedure Name Priority Date/Time Associated Diagnosis Comments POCT URINE HCG () STAT 09/05/2024 2:02 PM CDT URINALYSIS REFLEX IF INDICATED BY ABNORMAL RESULTS STAT 09/05/2024 1:58 PM CDT HERPES SIMPLEX VIRUS (HSV), PCR, VARIES LAUREL HSVPV STAT 09/05/2024 1:58 PM CDT from Last 3 Months Results * POCT Urine HCG () (09/05/2024 2:02 PM CDT) POC URINE Negative POC URINE CONTROL Purse Seining Hand Pass Urine 09/05/2024 2:02 PM CDT Mamta Muhammad APRN, SENIOR RESEARCH ASSOCIATE POINT OF CARE TESTING (MANUAL) Final Result * (ABNORMAL) URINALYSIS REFLEX IF INDICATED BY ABNORMAL RESULTS (09/05/2024 1:58 PM CDT) SPECIFIC GRAVITY 1.025 1.003 - 1.030 09/05/2024 2:40 PM CDT [facility] URINE PH 6.0 5.0 - 9.0 09/05/2024 2:40 PM CDT [facility] WBC ESTERASE Negative Negative 09/05/2024 2:40 PM CDT [facility] NITRITE Negative Negative 09/05/2024 2:40 PM CDT [facility] PROTEIN, RANDOM URINE 30 mg/dL(A) Negative 09/05/2024 2:40 PM CDT [facility] URINE GLUCOSE, QUAL Negative Negative 09/05/2024 2:40 PM CDT [facility] URINE KETONES Negative Negative 09/05/2024 2:40 PM CDT [facility] UROBILINOGEN Normal Normal mg/dL 09/05/2024 2:40 PM CDT [facility] URINE BLOOD Negative Negative christo/ul 09/05/2024 2:40 PM CDT [facility] URINALYSIS COLOR Yellow 09/06/19 25 2:40 PM CDT [facility] URINALYSIS CLARITY Slightly Cloudy 09/05/2024 2:40 PM CDT [facility] WBC (Urine) Negative Negative, 0-5 /hpf 09/05/2024 2:40 PM CDT [facility] URINE RBC'S Negative Negative, 0-2 /hpf 09/05/2024 2:40 PM CDT [facility] EPITHELIAL CELLS Large amount squamous /lpf 09/05/2024 2:40 PM CDT [facility] BACTERIA, URINE Few(A) Negative /hpf 09/05/2024 2:40 PM CDT [facility] URINE MUCOUS Few 09/05/2024 2:40 PM CDT [facility] Urine URINE SPECIMEN OBTAINED BY CLEAN CATCH PROCEDURE / Unknown Non-Phlebotomy Collection / Unknown 09/05/2024 1:58 PM CDT 09/05/2024 2:15 PM CDT us Mamta Muhammad APRN, SENIOR RESEARCH ASSOCIATE URINE ORDERABLES Lily pandya Result [facility] [address] [place] [address] * HERPES SIMPLEX VIRUS (HSV), MOLECULAR DETECTION, PCR, VARIES LAUREL HSVPV (09/05/2024 1:58 PM CDT) HSVPV SPECIMEN SOURCE vaginal lesion 09/08/2024 2:56 PM CDT [facility] HSVPV HSV 1 PCR Negative Negative 5 2:56 PM CDT [facility] HSVPV HSV 2 PCR Negative Negative 5 2:56 PM CDT [facility] Comment: ADDITIONAL INFORMATION This test was developed and its performance characteristics determined by [facility] in a manner consistent with CLIA requirements. This test has not been cleared or approved by the U.S. Food and Drug Administration. Test Performed by: [place] [address] Security Management Specialist: Senia Weiner Ph.D.; CLIA# [id number] Other Non-Phlebotomy Collection / Unknown 09/05/2024 1:58 PM CDT 09/05/2024 2:14 PM CDT us Mamta Muhammad TRAIN OPERATOR, SENIOR RESEARCH ASSOCIATE LAB SEND OUTS Final Result [facility] from Last 3 Months Care Teams Valve Steamer Relationship Specialty Start Date End Date Provider, None [place] PCP - General 09/05/24
[2024-09-27 08:47] VITALS: BP 136/80; PULSE 91; RESP 18; TEMP 36.3; O2SAT 100
--- NOTE | 2024-09-27 08:52 | ED_ITS ---
HPI - General Adult General Chief complaint: Upper Respiratory Infection Stated complaint: Sore Throat Source: patient Mode of arrival: ambulatory Limitations: no limitations History of Present Illness HPI narrative: Pt presents for evaluation of sick symptoms for the past four days. Symptoms include sore throat, chills, cough, shortness of breath, nausea, vomiting. No recent sick contacts to her knowledge. She does vape. She tried taking Claritin for her symptoms. She states her current symptoms have caused her to have migraine in the right retro-orbital region. She has associated photophobia. Her current symptoms are consistent with her normal migraine pattern. Related Data Home Medications ?Medication ?Instructions ?Recorded ?Confirmed ?Last Taken ?Type citalopram 20 mg tablet 20 mg PO DAILY 02/25/23 01/04/24 Unknown History fluoxetine 20 mg capsule (Prozac) 20 mg PO DAILY 02/25/23 01/04/24 Unknown History trazodone 50 mg tablet 50 mg PO QHS 02/25/23 01/04/24 Unknown History Allergies Allergy/AdvReac Type Severity Reaction Status Date / Time amoxicillin Allergy Mild Rash Verified 01/04/24 13:24 Penicillins Allergy Mild Rash Verified 01/04/24 13:24 Review of Systems Review of Systems: CONSTITUTIONAL: Reports chills. Denies fever or sweats. EYES: Reports photophobia. Denies visual changes, redness, or discharge. ENT: Reports sore throat. Denies rhinorrhea, congestion, or otalgia. CARDIOVASCULAR: Denies chest pain, palpitations, or edema. RESPIRATORY: Reports cough and SOB GASTROINTESTINAL: Reports nausea and vomiting. Denies abdominal pain or diarrhea. GENITOURINARY: Denies dysuria or hematuria. SKIN: Denies rash or itching. MUSCULOSKELETAL: Denies back pain, joint pain, or myalgia. NEUROLOGIC: Reports headache. Denies numbness, dizziness, or weakness. PSYCHIATRIC: Denies anxiety or depression. [facility] Past Medical History Medical History Migraine UTI (urinary tract infection) Insomnia Anxiety and depression Surgical History Surgical History No pertinent past surgical history Family History Family History Mother Family history non-contributory Social History Social History Smoking status: Current every day smoker Tobacco type: e-cigarettes/vaping Substance use: current Substance use type: marijuana Living arrangements: with family Gender identity (if verbalized by the patient): Female Exam Narrative: GENERAL: Well-appearing, well-nourished, and in no acute distress. HEAD: Normocephalic, atraumatic. EYES: PERRLA and EOMI. ENT: Nares clear, no rhinorrhea or epistaxis. Mucous membranes moist. There is posterior pharyngeal erythema. Uvula is midline. Oropharynx without tonsillar hypertrophy exudate or other lesions. Bilateral TMs pearly sandoval nonbulging NECK: Supple. No adenopathy or masses. No carotid bruits or JVD CHEST: Clear to auscultation. No respiratory distress. No wheezes rales or rhonchi HEART: Regular rate and rhythm. No murmur heard. Normal peripheral pulses. ABDOMEN: Soft, nontender, nondistended, normal active bowel sounds. EXTREMITIES: Normal range of motion. No edema. SKIN: Warm, dry, no rash. NEURO: No focal deficits. Alert and oriented x3. PSYCH: Normal mood and affect. Course Course Emergency Course: This is a 29-year-old female who presented for evaluation of sick symptoms. Strep negative. Exam is consistent with acute viral syndrome. Recommend ulnq-jbi-[id number] agents for symptom management. Increase hydration. Follow up primary provider. Go to the ER for worsening symptoms. Patient in agreement with plan of care. Level of Care: Express Care Visit Vital Signs Vital signs: Vital Signs Temperature 36.3 C L 09/27/24 08:47 Pulse Rate 91 09/27/24 08:47 Respiratory Rate 18 09/27/24 08:47 Blood Pressure 136/80 09/27/24 08:47 Pulse Oximetry 100 09/27/24 08:47 Oxygen Delivery Room Air 09/27/24 08:47 Temperature 36.3 C L 09/27/24 08:47 Pulse Rate 91 09/27/24 08:47 Respiratory Rate 18 09/27/24 08:47 Blood Pressure 136/80 09/27/24 08:47 Pulse Oximetry 100 09/27/24 08:47 Oxygen Delivery Room Air 09/27/24 08:47 Medical Decision Making Vital Signs Vital Signs: Vital Signs Temperature 36.3 C L 09/27/24 08:47 Pulse Rate 91 09/27/24 08:47 Respiratory Rate 18 09/27/24 08:47 Blood Pressure 136/80 09/27/24 08:47 Pulse Oximetry 100 09/27/24 08:47 Oxygen Delivery Room Air 09/27/24 08:47 Temperature 36.3 C L 09/27/24 08:47 Pulse Rate 91 09/27/24 08:47 Respiratory Rate 18 09/27/24 08:47 Blood Pressure 136/80 09/27/24 08:47 Pulse Oximetry 100 09/27/24 08:47 Oxygen Delivery Room Air 09/27/24 08:47 Lab Data Labs: Lab Results 09/27/24 Range/Units 08:53 POC Grp A Strep Screen Negative (Negative) Discharge Plan Discharge Clinical Impression: Acute viral syndrome Patient Disposition: Home Condition: Stable Instructions: Antibiotic Form, Viral Syndrome (ED) Additional Instructions: CEPACOL LOZENGES MAY HELP WITH SORE THROAT DEXTROMETHORPHAN(DELSYM) MAY HELP WITH COUGH Patient Language: [place] Islander Prescriptions: No Action trazodone 50 mg tablet 50 mg PO QHS citalopram 20 mg tablet 20 mg PO DAILY fluoxetine [Prozac] 20 mg Capsule 20 mg PO DAILY ibuprofen 800 mg tablet 800 mg PO TID PRN (Reason: pain) Qty: 15 0RF Follow-up/Referrals: PHYSICIAN,[employer] T[employer] PRINCIPAL [Primary Care Provider] - Stand Alone Forms: Work/School Release IP Time of Disposition: 08:58
[2024-09-27 08:55] LABS: EDSTREPNEGPOS1 Negative (Negative)
== END 2024-09-27 09:03 | disposition home or self-care (01) ==
PROVIDERS: Emergency Provider Nurse Practitioner
DX: B34.9 Viral infection, unspecified (principal); F17.290 Nicotine dependence, other tobacco product, uncomplicated; F12.90 Cannabis use, unspecified, uncomplicated; F41.9 Anxiety disorder, unspecified; F32.A Depression, unspecified
CPT/HCPCS: 87081; 87880; 99213; G0463

== ENCOUNTER 2025-03-05 09:44 | Emergency (ER) | payer SELFPAY ==
--- NOTE | 2025-03-05 09:45 | ED_ITS ---
HPI - Skin/Abscess/Foreign Bdy General Chief complaint: Skin/Abscess/Foreign Body Stated complaint: Rash Time Seen by Provider: 03/05/25 09:44 Source: patient Mode of arrival: ambulatory Limitations: no limitations History of Present Illness HPI narrative: Carmenza is a 29 year old female patient presenting to the clinic today with c/o a rash x1 week. She reports started out with some back pain and now has developed a erythematous base rash with tingling, itching, and pain. Rates pain currently a 6/10. Has had history of chickenpox as a child. No history of shingles in the past. Has taken ibuprofen for pain. She denies any fevers, chills, or body aches. Related Data Home Medications ?Medication ?Instructions ?Recorded ?Confirmed ?Last Taken ?Type fluoxetine 20 mg capsule (Prozac) 20 mg PO DAILY 02/2501/04/24 Unknown History trazodone 50 mg tablet 50 mg PO QHS 02/25/23 Unknown History Allergies Allergy/AdvReac Type Severity Reaction Status Date / Time amoxicillin Allergy Mild Rash Verified 03/05/25 09:59 Penicillins Allergy Mild Rash Verified 03/05/25 09:59 Review of Systems Review of Systems: Pertinent positives per HPI. Patient denies any fever, chills, headache, visual changes, dizziness, cough, runny nose, sore throat, shortness of breath, chest pain, palpitations, nausea, vomiting, diarrhea, constipation, abdominal pain, or any urinary issues. PMFSH Past Medical History Medical History Migraine UTI (urinary tract infection) Insomnia Anxiety and depression Surgical History Surgical History No pertinent past surgical history Family History Family History Mother Family history non-contributory Social History Social History Tobacco type: e-cigarettes/vaping Substance use: current Substance use type: marijuana Living arrangements: with family Gender identity (if verbalized by the patient): Female Comments At the time of my signature, I reviewed and agree with the nursing past medical, surgical, social, and family history. There is no relevant family history pertinent to the patient complaint. Exam Narrative: General: Well-developed, well nourished, in no apparent distress Head: Normocephalic, atraumatic. Cardio: Regular rate and rhythm, s1 and s2 normal, no murmur appreciated. Resp: Clear to auscultation bilaterally, no rhonchi, rales, wheezing or rubs. Integumentary: [place], warm, and dry, erythematous base rash with pain and itching without vesicular lesions Course Course Emergency Course: Portions of this record may have been created with voice recognition software. Level of Care: Express Care Visit Vital Signs Vital signs: Vital Signs Temperature 36.5 C 03/05/25 09:49 Pulse Rate 68 03/05/25 09:49 Respiratory Rate 18 03/05/25 09:49 Blood Pressure 122/73 03/05/25 09:49 Pulse Oximetry 100 03/05/25 09:49 Oxygen Delivery Room Air 03/05/25 09:49 Temperature 36.5 C 03/05/25 09:49 Pulse Rate 68 03/05/25 09:49 Respiratory Rate 18 03/05/25 09:49 Blood Pressure 122/73 03/05/25 09:49 Pulse Oximetry 100 03/05/25 09:49 Oxygen Delivery Room Air 03/05/25 09:49 Vital signs reviewed MDM - Skin/Abscess/Foreign Bdy MDM Narrative Medical decision making narrative: At the time of visit patient is resting comfortably on the exam table. Patient appears to be nontoxic. C/o a rash x1 week. She reports started out with some back pain and now has developed a erythematous base rash with tingling, itching, and pain. Rates pain currently a 6/10. Has had history of chickenpox as a child. No history of shingles in the past. Has taken ibuprofen for pain. On exam has Erythematous base rash without vesicular lesions to the left lateral back and the left mid back, area tender to palpation and itchy. Plan: I suspect patient has shingles rash. Prescription for acyclovir was sent to the pharmacy. Supportive measures were discussed with the patient and they voiced understanding discharge instructions and agrees to treatment plan. Return precautions reviewed Differential Diagnosis Differential diagnosis: Likely abscess of skin or subcutaneous tissue, viral exanthem, urticaria, cellulitis, eczema, insect bites and contact dermatitis Discharge Plan Discharge Clinical Impression: Shingles rash Qualifiers: Herpes zoster complications: without complications Qualified Code(s): B02.9 - Zoster without complications Patient Disposition: Home Condition: Stable Instructions: Antibiotic Form, Shingles (ED) Additional Instructions: Increase fluids and stay well hydrated May take Tylenol or motrin as directed on bottle for pain/fever Take acyclovir as prescribed. May use lidocaine patch for pain as directed. Stay away from immunocompromised, unvaccinated for chicken pox, and persons Keep area covered if they are draining. They are considered no longer contagious when the rash is scabbed over Follow up with your PCP in 5-7 days if symptoms persist. Patient Language: Serbian Prescriptions: New acyclovir 800 mg tablet 800 mg PO Q4H 7 Days Qty: 42 0RF Rx Instructions: while awake; give 5 doses in 24 hours No Action trazodone 50 mg tablet 50 mg PO QHS fluoxetine [Prozac] 20 mg Capsule 20 mg PO DAILY Follow-up/Referrals: UNKNOWN,DOCTOR [Non-Staff] Time of Disposition: 10:03 Quality NIHSS Nursing Documentation ED NIHSS nursing documentation: reviewed/agree
--- OUTSIDE RECORDS SUMMARY | 2025-03-05 09:45 | XMS_ITS | Clinical Summary ---
Author Organization [facility] Address [address] [place] [address] Phone Care Team Providers Care Vocational Nurse Name Role Phone Provider, None Primary Care [...] Virus (HCV) Screening 1994 Pap Smear 08/10/2015 Cervical Cancer Screening (CCS) 2024 HPV/Cotest 2024 Influenza Immunization (#1) 2024 02/0 10/2022, 02/16/2017, 02/06/2010, Additional history exists SARS-COV-2 Immunization (2024- season) 2024 Respiratory Syncytial Virus (RSV) Immunization (Adult) (1 [...] age to complete this topic Care Teams Vocational Nurse Relationship Specialty Start Date End Date Provider, None [place] PCP - General 09/05/24
--- OUTSIDE RECORDS SUMMARY | 2025-03-05 09:46 | XMS_ITS | Clinical Summary ---
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 Gender Identity Not on file Sexual Orientation [...] 11:35 AM CDT Height 157.5 cm (5' 2.01) 09/30/2021 9:39 AM CD T Body Mass [...] 08/10/1995, Additional history exists Influenza Vaccine (#1) 2024 , 02/16/2017, 02/06/2010, Additional history exists Hepatitis B Screening Completed 02/17/1995 , 1994, 1994 HPV Vaccines Completed 01/04/2009, 05/29, 11/01/2007 Pneumococcal vaccine <65 Aged Out No longer eligible based on patient's age to complete this topic Insurance LAVELL WALKER [id number] [facility] [employer] ACCESS CHOICE Care Teams Dining Service Supervisor Relationship Specialty Start Date End Date Abdelrahman Pickard MD [address] [place] [id number] PCP - General 04/15/20
--- OUTSIDE RECORDS SUMMARY | 2025-03-05 09:48 | XMS_ITS | Clinical Summary ---
Author Organization [facility] Address [address] [place] [address] Care Team Providers Care Physical Meteorologist Name Role Phone Tobi Hay MD Primary Care Provider [phone] Source Comments [facility],non-owned Affiliates and Associated Physician Practices is amultiple site organization consisting of ambulatory clinics and hospital sitesin [place], [place], [place] and [place]. This disclosure is being madepursuant to the Care Everywhere program and may not contain all information available regarding this patient. Last updated 18.[facility] Allergies Active Allergy Reactions Criticality Noted Date Comments Peanut-Derived 09/10/2012 Medications * Be aware that medications may not be up to date on this document. Alwaysverify current medications with the patient. 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 Gender Identity Not on file Sexual Orientation Not on file Last Filed Vital Signs Vital Sign Reading Time Taken Comments Blood Pressure 136/70 09/10/2012 10:59 AM CDT Pulse - - Temperature - - Respiratory Rate - - Oxygen Saturation - - Inhaled Oxygen Concentration - - Weight 128.7 kg (283 lb 11.2 oz) 2012 10:59 AM CDT Height 161 cm (5' 3.39) 09/10/2012 10: 59 AM CDT Body Mass Index 49.64 09/10/2012 10:59 AM CDT Plan of Treatment Health Maintenance Due Date Last Done Comments HIV SCREENING 2009 HEPATITIS C SCREENING 08/04/2012 DTAP/TDAP/TD VACCINES (1 - Tdap) 2013 HEPATITIS B VACCINE (1 of 3 - 19+ 3-dose series) 2013 HPV VACCINE (1 - 3-dose SCDM series) 2021 DEPRESSION SCREENING 04/27/2024 COVID-19 VACCINE (1 - 2023-2 5 season) 2024 INFLUENZA VACCINE (#1) 2024 ZOSTER VACCINE (1 of 2) 2044 HIB VACCINE Aged Out No longer eligi ble based on patient's age to complete this topic MENINGOCOCCAL (Group B) VACC INE SHARED DECISION-MAKING Aged Out No longer eligibl e based on patient's age to complete this topic MENINGOCOCCAL GROUPS A/C/Y/W VACCINE Aged Out No longer eligible b ased on patient's age to complete this topic PNEUMOCOCCAL VACCINE Aged Out No long er eligible based on patient's age to complete this topic Insurance MEDICAID - [place] Care Teams Physical Meteorologist Relationship Specialty Start Date End Date Tobi Hay MD [address] [facility] [address] [place] [address] PCP - General 01/02/12
[2025-03-05 09:49] VITALS: BP 122/73; PULSE 68; RESP 18; TEMP 36.5; O2SAT 100
== END 2025-03-05 10:05 | disposition home or self-care (01) ==
PROVIDERS: Emergency Provider Nurse Practitioner Family
DX: B02.9 Zoster without complications (principal); F17.290 Nicotine dependence, other tobacco product, uncomplicated; F12.90 Cannabis use, unspecified, uncomplicated; F41.9 Anxiety disorder, unspecified; F32.A Depression, unspecified
CPT/HCPCS: 99213; G0463